=== PATIENT | female | born 1985 | race Caucasian/White ===

== ENCOUNTER 2020-11-11 09:23 | Outpatient (CLI) | payer OTHER ==
--- NOTE | 2020-11-11 11:37 | RAD ---
LUMBAR SPINE 3 VIEWS: HISTORY: Back pain. FINDINGS: Lumbar vertebrae maintain normal height and alignment. L5 is transitional. No evidence of spondylol isthesis. Very mild degenerative spurring is seen. IMPRESSION: 1. Transitional L5. Mild degenerative change in the lumbar spine. 2. Intrauterine device is noted overlying the mid pelvis. POS: [facility]W
== END 2020-11-11 09:24 | disposition home or self-care (01) ==
LOC: RAD-FRANK 09:23
PROVIDERS: ATTEND Nurse Practitioner Family
DX: M54.30 Sciatica, unspecified side (principal); M47.816 Spondylosis without myelopathy or radiculopathy, lumbar region; Z97.5 Presence of (intrauterine) contraceptive device
CPT/HCPCS: 72100